=== PATIENT | female | born 1985 | race Caucasian/White ===

== ENCOUNTER 2019-11-21 09:43 | Emergency (ER) | payer OTHER ==
[2019-11-21 10:39] LABS: ABS Eosinophils 0.1 10^3/ul (0-0.6); ABS Lymphocytes 1.4 10^3/ul (1.0-4.8); ABS Monocytes 0.3 10^3/ul (0-0.8); ABS Neutrophils 3.5 10^3/ul (1.5-7.7); Eosinophil % 1.9 %; Hematocrit 41 % (35-47); Hemoglobin 14.1 g/dL (12.0-16.0); Lymphocyte % 25.5 %; Mean Corpuscular HGB Conc 35 g/dL (31-36); Mean Corpuscular Hemoglobin 32 pg (27-31); Mean Corpuscular Volume 91 fL (80-97); Mean Platelet Volume 7.4 fL (7.4-10.4); Nucleated Red Blood Cells % 0.1; Platelet Count 191 10^3/uL (150-450); Red Blood Count 4.44 10^6 /uL (3.70-4.87); Red Cell Distribution Width 14 % (10-15); White Blood Count 5.3 10^3/uL (3.5-10.8)
--- NOTE | 2019-11-21 10:54 | ED ---
Complex/Multi-Sys Presentation - HPI Summary HPI Summary: 34 year old F presenting to [facility] accompanied by male floor waxer complains of chest discomfort and palpitations since 3 weeks ago, following recovery from a sickness in September for which she received a 10 day Augmentin course for. She experienced coughs, CP, SOB, and sputum production in that episode but not currently. Patient reports the Augmentin helped mostly clear up her lungs but has had the palpitations ever since. She visited her PCP who told her to come in to get blood work and EKG. PMHx of asthma. FHx of cardiac disease. The patient rates the pain 0/10 in severity. The palpitations are worse when lying down. Symptoms alleviated by nothing. - History Of Current Complaint Chief Complaint: EDDysrhythmPalp Time Seen by Provider: 11/21/19 10:14 Hx Obtained From: Patient Onset/Duration: Lasting Weeks, Still Present Aggravating Factor(s): lying down Alleviating Factor(s): nothing Associated Signs And Symptoms: Positive: Palpitations. Negative: Chest Pain - chest discomfort but not painful - Allergies/Home Medications Allergies/Adverse Reactions: Allergies Allergy/AdvReac Type Severity Reaction Status Date / Time No Known Allergies Allergy Verified 11/21/19 09:50 Home Medications: Home Medications Multivitamins/Minerals TAB* [Theragran/minerals TAB*] 1 tab PO DAILY 11/21/19 [ History Confirmed 11/21/19] PMH/Surg Hx/FS Hx/Imm Hx Respiratory History: Reports: Hx Asthma Opthamlomology History: Denies: Hx Legally Blind Infectious Disease History: No Infectious Disease History: Denies: Traveled Outside the [place] in Last 30 Days - Family History Known Family History: Positive: Cardiac Disease Review of Systems Negative: Fever Positive: Palpitations. Negative: Chest Pain - chest discomfort but no pain All Other Systems Reviewed And Are Negative: Yes Physical Exam - Summary Physical Exam Summary: Constitutional: Well-developed, Well-nourished, Alert. (-) Distressed Skin: Warm, Dry HENT: Normocephalic; Atraumatic Eyes: Conjunctiva normal Neck: Musculoskeletal ROM normal neck. (-) JVD, (-) Stridor, (-) Nuchal rigidity Cardio: Rhythm regular, rate normal, Heart sounds normal; Intact distal pulses; Radial pulses are 2+ and symmetric. (-) Murmur Pulmonary/Chest wall: Effort normal. (-) Respiratory distress, (-) Wheezes, (-) Rales Abd: Soft, (-) tenderness, (-) Distension, (-) Guarding, (-) Rebound Musculoskeletal: (-) Edema Lymph: (-) Cervical adenopathy Neuro: Alert, Oriented x3 Psych: Mood and affect Normal Triage Information Reviewed: Yes Vital Signs On Initial Exam: Initial Vitals Temp Pulse Resp BP Pulse Ox 98.7 F 92 15 122/82 100 11/21/19 09:44 11/21/19 09:44 11/21/19 09:44 11/21/19 09:44 11/21/19 09:44 Vital Signs Reviewed: Yes Procedures - Sedation Patient Received Moderate/Deep Sedation with Procedure: No Diagnostics - Vital Signs Vital Signs Temp Pulse Resp BP Pulse Ox 11/21/19 09:44 98.7 F 92 15 122/82 100 - Laboratory Lab Results: Lab Results 11/21/19 Range/Units 10:33 WBC 5.3 (3.5-10.8) 10^3/uL RBC 4.44 (3.70-4.87) 10^6 /uL Hgb 14.1 (12.0-16.0) g/dL Hct 41 (35-47) % MCV 91 (80-97) fL MCH 32 H (27-31) pg MCHC 35 (31-36) g/dL RDW 14 (10-15) % Plt Count 191 (150-450) 10^3/uL MPV 7.4 (7.4-10.4) fL Neut % (Auto) 65.8 % Lymph % (Auto) 25.5 % [place] % (Auto) 6.2 % Eos % (Auto) 1.9 % Baso % (Auto) 0.6 % Absolute Neuts (auto) 3.5 (1.5-7.7) 10^3/ul Absolute Lymphs (auto) 1.4 (1.0-4.8) 10^3/ul Absolute Monos (auto) 0.3 (0-0.8) 10^3/ul Absolute Eos (auto) 0.1 (0-0.6) 10^3/ul Absolute Basos (auto) 0.0 (0-0.2) 10^3/ul Absolute Nucleated RBC 0.0 10^3/ul Nucleated RBC % 0.1 Result Diagrams: 11/21/19 10:33 11/21/19 10:33 Lab Statement: Any lab studies that have been ordered have been reviewed, and results considered in the medical decision making process. - Radiology CXR Radiology Interpretation Completed By: Radiologist Summary of Radiographic Findings: IMPRESSION: NO ACTIVE CARDIOPULMONARY DISEASE. has reviewed this report. - EKG 0956 Cardiac Rate: NL EKG Rhythm: Sinus Rhythm Summary of EKG Findings: An EKG at 0956 reveals normal sinus rhythm at a rate of 76 BPM, nml axis, nml intervals. No STEMI. No acute changes. ED physician has reviewed and interpreted this EKG. Re-Evaluation - Re-Evaluation First Eval Re-Evaluation Time: 11:40 Change: Improved - resting HR 70's. D/w patient labs and EKG. Plan for outpatient holter. Complex Multi-Symp Course/Dx Course Of Treatment: 34 y/o F p/w palpitations. - VSS NAD. EKG sinus, electrolytes within normal limits. Chest x-ray unremarkable. Patient to follow up with outpatient provider for Holter monitor. - Diagnoses Provider Diagnoses: Heart palpitations Discharge ED - Sign-Out/Discharge Documenting (check all that apply): Patient Departure - discharge - Discharge Plan Condition: Stable Disposition: HOME Patient Education Materials: Heart Palpitations (ED) Referrals: Carolin Anderson [Primary Care Provider] - Additional Instructions: You were seen in the emergency department for palpitations. Your labs did not show any acute abnormalities. Your EKG was sinus. You can follow-up with cardiology and her primary care doctor for possible Holter monitor. Please follow up with your primary care doctor in next 2-3 days and return to emergency department for chest pain, passing out, trouble breathing, worsening or concerning symptoms. It was a pleasure taking care of you today. - Billing Disposition and Condition Condition: STABLE Disposition: Home - Attestation Statements Document Initiated by Scribe: Yes Documenting Scribe: Cristhian Velazquez Provider For Whom Yue is Documenting (Include Credential): Dr.Caelyn Nigel Lee MD Scribe Attestation: I, Cristhian Velazquez, scribed for Dr.Caelyn Nigel Lee MD on 11/21/19 at 1204. Scribe Documentation Reviewed: Yes Provider Attestation: The documentation as recorded by the scribe, Cristhian Velazquez accurately reflects the service I personally performed and the decisions made by me, Dr.Caelyn Nigel Lee MD Status of Scribe Document: Viewed
[2019-11-21 11:11] LABS: ALT 9 U/L (7-52); AST 17 U/L (13-39); Albumin 4.4 g/dL (3.2-5.2); Albumin/Globulin Ratio 1.7 (1-3); Alkaline Phosphatase 42 U/L (34-104); Anion Gap 5 mmol/L (2-11); Blood Urea Nitrogen 11 mg/dL (6-24); CO2 Carbon Dioxide 26 mmol/L (22-32); Calcium 9.5 mg/dL (8.6-10.3); Chloride 106 mmol/L (101-111); EGFR African American 83.6 (>60); EGFR Non-African American 69.1 (>60); Globulin 2.6 g/dL (2-4); Glucose 112 mg/dL (70-100); Magnesium 1.9 mg/dL (1.9-2.7); Potassium 4.5 mmol/L (3.5-5.0); Sodium 137 mmol/L (135-145)
[2019-11-21 11:16] LABS: HCG Pregnancy < 0.60 mIU/mL
[2019-11-21 11:31] LABS: TSH (Thyroid Stimulating Horm) 2.32 mcIU/mL (0.34-5.60)
[2019-11-21 12:19] VITALS: BP 106/82
== END 2019-11-21 12:18 | disposition home or self-care (01) ==
LOC: ED 09:43
DX: R00.2 Palpitations (principal); J45.909 Unspecified asthma, uncomplicated
CPT/HCPCS: 36415; 71046; 80053; 83735; 84443; 84702; 85025; 93005; 99283